=== PATIENT | female | born 2000 | race Caucasian/White ===

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

== ENCOUNTER 2021-02-14 15:07 | Outpatient (CLI) | payer MEDICAID, SELFPAY ==
[2021-02-14 16:11] LABS: Kit/Specimen SENT
[2021-02-14 16:16] LABS: Abs Immature Grans 0.08 10^3/uL (0.0-0.06); Absolute Basophil Count 0.04 10^3/uL (0.0-0.2); Absolute Eosinophil Count 0.15 10^3/uL (0.0-0.7); Basophils % 0.3; Eosinophils % 1.1; HCT 39.2 % (36.0-46.0); HGB 13.4 g/dL (11.2-15.7); Immature Grans % 0.6; Lymphocytes % 20.6; MCH 30.4 pg (27.0-33.0); MCHC 34.2 % (32.0-36.0); MCV 88.9 fL (80-95); MPV 10.3 fL (8.0-11.0); Monocytes % 5.5; Neutrophils % 71.9; Nucleated RBC 0 %; Platelet Count 256 10^3/uL (130-400); RBC 4.41 10^6/uL (3.93-5.22); RDW 11.7 % (11.7-14.6); RDW-SD 37.4 fL; WBC 14.09 10^3/uL (4.4-10.8)
[2021-02-14 16:27] LABS: Absolute Monocyte Count 0.77 10^3/uL (0.1-0.8); Absolute Neutrophil Count 10.13 10^3/uL (1.2-6.7)
[2021-02-15 10:25] LABS: Hepatitis B Surface Ag Negative (Negative)
[2021-02-15 11:01] LABS: HIV-1/2 Ag & Ab Screen Negative (Negative)
[2021-02-15 11:14] LABS: Hepatitis C Ab w Rflx HCV PCR Negative (Negative)
[2021-02-15 11:38] LABS: Varicella IgG Antibody Positive (See Note)
[2021-02-15 11:44] LABS: Rubella IgG Ab (UVM) Positive (See Note)
[2021-02-16 10:20] LABS: Syphilis Total Ab w/Reflex Nonreactive (Nonreactive)
[2021-02-22 23:04] LABS: Result Summary NEGATIVE; Specimen WB Whole Blood
== END 2021-02-14 15:08 | disposition home or self-care (01) ==
LOC: LBO 15:09
PROVIDERS: PCP Registered Nurse; Visit Provider Advanced Practice Midwife
DX: Z34.91 Encounter for supervision of normal pregnancy, unspecified, first trimester (principal); Z13.29 Encounter for screening for other suspected endocrine disorder; Z11.4 Encounter for screening for human immunodeficiency virus [HIV]; Z11.59 Encounter for screening for other viral diseases; Z01.84 Encounter for antibody response examination
CPT/HCPCS: 36415; 86787; 86803; 86850; 86900; 86901; 87340; 87389; 81220; 84443; 85025; 86762; 86780

== ENCOUNTER 2021-02-14 15:40 | Outpatient (REF) | payer MEDICAID, SELFPAY ==
[2021-02-14 16:58] LABS: *AMPHETAMINES SCREEN URINE Negative (Negative); *BARBITURATES SCREEN URINE Negative (Negative); *BENZODIAZEPINES SCREEN URINE Negative (Negative); Cannabinoids THC Positive (Negative); Cocaine Screen,Urine Negative (Negative); METHADONE URINE SCREEN Negative (Negative); OPIATES URINE SCREEN Negative (Negative)
[2021-02-14 16:59] LABS: Tricyclic Antidepressants Negative (Negative)
[2021-02-15 15:02] LABS: Chlamydia Result Negative (Negative); GC Result Negative (Negative)
[2021-02-17 10:59] LABS: Buprenorphine Negative ng/mL (Cutoff: 5.0); Norbuprenorphine Negative ng/mL (Cutoff: 2.5)
== END 2021-02-14 15:41 | disposition home or self-care (01) ==
LOC: LBN 15:40
PROVIDERS: PCP Registered Nurse; Visit Provider Advanced Practice Midwife
DX: Z34.91 Encounter for supervision of normal pregnancy, unspecified, first trimester (principal); Z11.3 Encounter for screening for infections with a predominantly sexual mode of transmission; Z3A.12 12 weeks gestation of pregnancy
CPT/HCPCS: 80307; 87491; 87591; 87086

== ENCOUNTER 2021-04-04 02:05 | Outpatient (CLI) | payer MEDICAID, SELFPAY ==
--- NOTE | 2021-04-04 08:15 | DI.US_ITS ---
Exam(s) US OB 2-3 TRIMESTER EXAM: US OB 2-3 TRIMESTER CLINICAL HISTORY: anatomy US, Z34.92 TECHNIQUE: Ultrasound performed using standard protocol. COMPARISON: No exams were available for comparison FINDINGS: Ob ultrasound was performed utilizing 2nd trimester protocol. biometry is consistent with a ge stational age of 20 weeks 0 days and an EDC of August 22. Placenta is anterior and there is no evidence of placenta previa. There is visually a normal quantit y of amniotic fluid. heart rate is 155 BPM. anomaly screen is within normal limits as per the attached checkl ist. IMPRESSION: DATA REPOSITORY:
== END 2021-04-04 02:25 ==
PROVIDERS: PCP Registered Nurse; Visit Provider Advanced Practice Midwife
DX: Z34.92 Encounter for supervision of normal pregnancy, unspecified, second trimester (principal); Z3A.20 20 weeks gestation of pregnancy
CPT/HCPCS: 76805

== ENCOUNTER 2021-05-07 16:45 | Emergency (ER) | payer MEDICAID, SELFPAY ==
[2021-05-07 16:49] VITALS: BP 116/73; PULSE 98; RESP 17; TEMP 36.4; O2SAT 97
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
[2021-05-07] MEDS: Acetaminophen 500 MG TAB PO (17:31)
== END 2021-05-07 18:20 | disposition home or self-care (01) ==
PROVIDERS: Emergency Provider Registered Nurse Emergency; PCP Registered Nurse
DX: O9A.212 Injury, poisoning and certain other consequences of external causes complicating pregnancy, second trimester (principal); S00.03XA Contusion of scalp, initial encounter; Z3A.24 24 weeks gestation of pregnancy; V49.9XXA Car occupant (driver) (passenger) injured in unspecified traffic accident, initial encounter
CPT/HCPCS: 99284; 99283

== ENCOUNTER 2021-05-07 17:50 | Observation (INO) | payer MEDICAID, SELFPAY ==
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
[2021-05-07 20:30] VITALS: BP 99/66; PULSE 75; RESP 16; TEMP 37
[2021-05-07 20:33] VITALS: BP 98/66; PULSE 75
== END 2021-05-07 22:15 | disposition home or self-care (01) ==
PROVIDERS: Admitting Provider Advanced Practice Midwife; PCP Registered Nurse; Visit Provider Advanced Practice Midwife
DX: Z04.1 Encounter for examination and observation following transport accident (principal); V89.0XXA Person injured in unspecified motor-vehicle accident, nontraffic, initial encounter; O99.352 Diseases of the nervous system complicating pregnancy, second trimester; O99.512 Diseases of the respiratory system complicating pregnancy, second trimester; Z3A.24 24 weeks gestation of pregnancy; J45.909 Unspecified asthma, uncomplicated; G43.909 Migraine, unspecified, not intractable, without status migrainosus; O99.322 Drug use complicating pregnancy, second trimester; F12.90 Cannabis use, unspecified, uncomplicated
CPT/HCPCS: 59025; G0378

== ENCOUNTER 2021-05-20 18:09 | Observation (INO) | payer MEDICAID, SELFPAY ==
[2021-05-20 18:46] VITALS: BP 119/67; PULSE 67
[2021-05-20] MEDS: Lactated Ringers 1,000 ML 1000 ML IV (18:55)
[2021-05-20 19:03] VITALS: BP 119/67; PULSE 76; TEMP 36.8
[2021-05-20 19:29] LABS: HCT 35.6 % (36.0-46.0); HGB 12.3 g/dL (11.2-15.7); MCHC 34.6 % (32.0-36.0); MCV 89.7 fL (80-95); MPV 10.3 fL (8.0-11.0); Platelet Count 238 10^3/uL (130-400); RBC 3.97 10^6/uL (3.93-5.22); RDW 11.8 % (11.7-14.6); RDW-SD 38.2 fL; WBC 16.58 10^3/uL (4.4-10.8)
[2021-05-20 19:31] LABS: Bilirubin Negative (Negative); Blood Negative (Negative); Clarity Clear (Clear); Glucose Negative (Negative); Ketones 40 mg/dL (Negative); Leukocyte Esterase Small (Negative); Nitrite Negative (Negative); Urobilinogen 0.2 EU/dL (Up TO 0.2); pH 6.5 (5-8)
[2021-05-20 19:33] LABS: Source Nasal/Nares
[2021-05-20] MEDS: Pantoprazole 40 MG VIAL IVP (19:34)
[2021-05-20] MEDS: Normal Saline Flush 10 ML SYR IVP ×2 (19:34→20:05)
[2021-05-20 19:38] LABS: ALT 30 U/L (14-59); AST 13 U/L (15-37); Albumin 2.7 g/dL (3.4-5.0); Alkaline Phosphatase 104 U/L (46-116); Anion Gap 10.6 mmol/L (3-11); BUN 4 mg/dL (7-18); Bilirubin, Total 0.3 mg/dL (0.2-1.0); CO2 23.4 mmol/L (21.0-32.0); CREATININE 0.6 mg/dL (0.55-1.02); Calcium 8.4 mg/dL (8.5-10.1); Chloride 105 mmol/L (98-107); Glucose 74 mg/dL (74-106); Potassium 3.5 mmol/L (3.5-5.1); Sodium 139 mmol/L (136-145); Total Protein 6.5 g/dL (6.4-8.2)
[2021-05-20 19:40] LABS: Bacteria Moderate HPF (Negative); C & S Indicated? Yes; Casts Negative LPF (Negative); Crystals Negative HPF (Negative); Epithelial Cells Few HPF (Negative); Mucus Negative (Negative); RBC 0-2 HPF (0-2)
--- NOTE | 2021-05-20 19:43 | HPE_ITS ---
Date of service: 05/20/21 Time of Service: 19:43 Assessment and Plan Assessment and plan (1) Nausea and vomiting of , antepartum: Status: Acute Assessment and plan: will give IV hydration and antiemectic as well as protonix and reassess for possible discharge to home. Labs essentially normal, potassium 3.5 urine specific gravity 1.010 with 40 ketones, consistent with her ability to hydrate but not eat well. If after 1000cc bolus and medications patient is not feeling much improved with desire to go home she will stay overnight for repeat assessment in the morning for discharge to home. [facility] OB-HPI Labor/Delivery History of Present Illness Reason for Visit: Fluids Chief Complaint: Other (persistent N&V despite PO zofran and diclegis). ELIDA Calculator Estimated Delivery Date Method Current WG Current Estimate 08/24/21 Ultrasound #1 26w 2d Other Estimates 08/27/21 LMP (Certain) 25w 6d Comments: Patient reports she has not been able to eat since yesterday and has taken in 36 ounces of fluids but feels she is vomiting it all up so she was encouraged to come to [facility] for IV hydration and assessment of electrolytes. Denies LOF, vagainl bleeding or contractions. Denies fever. Has used zofran and diclegis at home with inadequate relief. TRAM History of Present Expected Delivery Route/Plan - FOB/edmund - Wallace Francoell ( his first child) BB [place] yes to circ Specific Issues/Plan 1. THC + UDS on initial OB, pt counseled re risks and POSC, repeat @ 28 wks 2. Pulmonology reports from [facility] scanned, no evidence of obstructive airway disease asthma is probable diagnosis. 3. [place] screen low prob x3, male fetus, declines AFP, CF negative 4. Migraine - tylenol PRN 5. 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 decreased pulmonary function Migraine Surgical History History of tonsillectomy age 11 Family History Father Well adult Mother Well adult Exotropia of both eyes Maternal Grandfather FH: hemophilia Brother Autism Paternal Grandfather Diabetes Maternal Grandmother Heart disease Prostate cancer Thyroid disease Social History Smoking/Tobacco Use Status: Never Smoking risk assessment performed?: Yes Alcohol Intake: never Drug use: Daily Substance use type: marijuana Do you feel safe at home: Yes Do you feel safe in your relationship?: Yes Female Reproductive History Menstrual Age of Menarche: 12 control method: condoms History History 1 Para 0 Hx # Term Pregnancies 0 Multiple births 0 Hx # Pregnancies 0 Ectopic pregnancies 0 AB induced 0 Hx Number of Living Children 0 AB spontaneous 0 Meds Allergies and Home Medications Allergies Allergy/AdvReac Type Severity Reaction Status Date / Time birch pollen Allergy nasal Uncoded 05/20/21 19:49 stuffiness fiberglass casts Allergy Blisters Uncoded 05/20/21 19:49 Home Medications Medication Instructions Recorded Confirmed Type albuterol sulfate 2 puff INHALATION Q4H PRN 06/30/18 05/07/21 History loratadine 10 mg tablet 10 mg PO DAILY PRN 02/14/21 05/07/21 History prenat.vits,gus,[id number] 1 tab PO DAILY 02/14/21 05/07/21 History ondansetron HCl 4 mg tablet 4 mg PO Q8H PRN #30 tab 03/14/21 05/07/21 Rx doxylamine 10 mg-pyridoxine (vit 1 tab PO BID #30 tab 04/04/21 05/07/21 Rx B6) 10 mg tablet,delayed release docusate sodium 100 mg capsule 100 mg PO BID #60 cap 05/02/21 05/07/21 Rx Exam Physical Exam Vital signs: Pulse BP 67 119/67 05/20/21 18:46 05/20/21 18:46 Vital Signs Reviewed: Yes Constitutional Constitutional: no acute distress Comments: after IV reglan and protonix patient is attempting to eat popcorn as that was what sounded good to her. Detailed Labor and Delivery Exam Brower Score: Cervical Points Exam 0 1 2 3 Dilation Closed 1-2cm 3-4 cm 5-6cm Effacement 0-30% 40-50% 60-70% 80% Consistency Firm Medium Soft Station -3 -2 -1,0 +1,+2 Position Posterior Mid Anterior Fetus A Assessment Note: patient is 26w2d with FHR within normal ranges of 120- 150. No noted contractions and patient denies discomfort. Results Abnormal Lab Findings: Abnormal Labs 05/20/21 05/20/21 05/20/21 18:46 19:10 19:10 WBC 16.58 H Hct 35.6 L BUN 4 L Calcium 8.4 L AST 13 L Albumin 2.7 L Urine Ketones 40 H Ur Leukocyte Esterase Small H Urine WBC 10-20 H Risk Assessment Risk for Shoulder Dystocia Historical/Initial OB: NEGATIVE FOR: Pelvic Abnormality, Pre- BMI>30, Previous Shoulder Dystocia or Previous Macrosomia Risk for Pre-Eclampsia Yes, if one or more: NEGATIVE FOR: Hx Pre-E/Gest HTN, Chronic HTN, Multiple Gestation, Pre-gestational DM, Renal Disease, Systemic Lupus or APA Syndrome Yes, if 2 or more: POSITIVE FOR: Nulliparity Risk for Post- Hemorrhage Initial: NEGATIVE FOR: Multiple Gestation, Previous PPH, Known Clotting Deficiency, Grand Multiparity or Anticoagulation Risks Reviewed Risks Reviewed Upon Admission: No (26w2d with nausea and vomiting, not admitted for labor. )
--- NOTE | 2021-05-20 20:02 | W.PM.PROGNOT ---
Date of Service Date of service: 05/20/21 Time of Service: 20:02 Assessment and Plan Assessment and plan (1) Nausea and vomiting of , antepartum: Status: Acute Assessment and plan: May be discharged to home if tolerating regular diet and no further emesis. Should keep her next scheduled visit in office. RX for protonix 40 mg daily sent to pharmacy. Subjective Subjective Interval history since last seen: After 30 minutes of IV hydration and medication for nausea as well as indigestion patient is requesting regular food and has been able to eat cheese and popcorn. She is also up to bathroom due to need to urinate. Urine is not dark in color. If she tolerated sandwich or similar well will likely discharge to home tonight. Exam HENMT Head: normal to inspection Ears: hearing grossly normal bilaterally Eyes General: appearance normal, both eyes and all related structures Eyelids: eyelids normal Conjunctivae: conjunctivae normal Resp Effort & Inspection: normal respiratory effort and able to speak in complete sentences Cardio Rate: regular rate GI Inspection: normal to inspection and other (size of uterus consistent with gestational age) Palpation: soft Neuro General: patient alert, patient oriented x3, gait normal, tone normal and moves all extremities Motor: muscle tone normal throughout Extrem Other: denies shaking feeling she had prior to arrival. Psych Appearance: grossly normal and well kempt Speech and Movement: speech and movement normal Mood: congruent mood Affect: normal affect Attitude: cooperative Thought Process: normal Thought Content: normal Insight: insight good Judgment: judgment good Objective Last Vital Signs Pulse 67 05/20/21 18:46 BP 119/67 05/20/21 18:46 Laboratory Results - last 24 hr 05/20/21 05/20/21 05/20/21 18:46 19:10 19:10 WBC 16.58 H RBC 3.97 Hgb 12.3 Hct 35.6 L MCV 89.7 MCH 31.0 MCHC 34.6 RDW 11.8 Plt Count 238 MPV 10.3 Sodium 139 Potassium 3.5 Chloride 105 Carbon Dioxide 23.4 Anion Gap 10.6 BUN 4 L Creatinine 0.6 Estimated GFR/1.73 m2 >= 60.00 Glucose 74 Calcium 8.4 L Total Bilirubin 0.3 AST 13 L ALT 30 Alkaline Phosphatase 104 Total Protein 6.5 Albumin 2.7 L Urine Color Yellow Urine Clarity Clear Urine pH 6.5 Ur Specific [place] 1.010 Urine Protein Negative Urine Ketones 40 H Urine Blood Negative Urine Nitrite Negative Urine Bilirubin Negative Urine Urobilinogen 0.2 Ur Leukocyte Esterase Small H Urine RBC 0-2 Urine WBC 10-20 H Ur Epithelial Cells Few Urine Crystals Negative Urine Bacteria Moderate Urine Casts Negative Urine Mucus Negative Ur Culture Indicated? Yes Urine Glucose Negative COVID-19 Source 05/20/21 19:10 WBC RBC Hgb Hct MCV MCH MCHC RDW Plt Count MPV Sodium Potassium Chloride Carbon Dioxide Anion Gap BUN Creatinine Estimated GFR/1.73 m2 Glucose Calcium Total Bilirubin AST ALT Alkaline Phosphatase Total Protein Albumin Urine Color Urine Clarity Urine pH Ur Specific [place] Urine Protein Urine Ketones Urine Blood Urine Nitrite Urine Bilirubin Urine Urobilinogen Ur Leukocyte Esterase Urine RBC Urine WBC Ur Epithelial Cells Urine Crystals Urine Bacteria Urine Casts Urine Mucus Ur Culture Indicated? Urine Glucose COVID-19 Source Nasal/Nares
[2021-05-20] MEDS: Metoclopramide 10 MG/2 ML VIAL IVP (20:04)
[2021-05-20 20:23] LABS: COVID-19 PCR Negative (Negative)
--- NOTE | 2021-05-20 21:24 | DSE_ITS ---
Date of service: 05/20/21 Time of Service: 21:24 DS: Diagnosis Discharge Diagnosis (1) Nausea and vomiting of , antepartum: Status: Acute Asessment and Plan: Now able to eat regular diet and no vomiting since arrival. Has had 1200 cc of IV fluid, normal specific gravity in urine and BG improved from 79 to 98. Discharge Plan Disposition Patient Disposition: HOME Condition: Good Discharge Details Reason For Visit: Fluids Admit Date/Time: 05/20/21 18:09 Admit Provider: Carla Dubon Attending Provider: Carla Dubon Primary Care Provider: Venecia Bobo [facility] Course Hospital Course: IV hydration, normal electrolytes noted and urine specific gravity 1.010, 40 of ketones but is now eating well and no vomiting since arrival. Home Meds and New Rx's Prescriptions: No Action loratadine [Claritin] 10 mg tablet 10 mg PO DAILY PRNRF: 0 prenat.vits,gus,[id number] Tablet 1 tab PO DAILY RF: 0 ondansetron HCl 4 mg tablet 4 mg PO Q8H PRN (Reason: nausea and vomiting) Qty: 30 RF: 4 doxylamine-pyridoxine (vit B6) [Diclegis] 10-10 mg tablet,delayed release (DR/EC) 1 tab PO BID Qty: 30 RF: 3 docusate sodium [Colace] 100 mg capsule 100 mg PO BID Qty: 60 RF: 2 pantoprazole [Protonix] 40 mg tablet,delayed release (DR/EC) 40 mg PO DAILY Qty: 60 RF: 0 albuterol sulfate 90 mcg/actuation Aerosol Powdr Breath Activated 2 puff INHALATION Q4H PRNRF: 0 Discharge Instructions Activity:: Activity as Tolerated Equipment/Supplies:: No Equipment Needed Diet:: As Tolerated Discharge Orders Discharge Orders: Discharge Order (Routine); Ordered 05/20/21 Ordered By: Carla Dubon OB:DS Summary Contraception Discussed Contraception Discussed: No, Status at Discharge Functional status at discharge: independent ambulation Overall status at discharge: patient is back to baseline Mental Status: mental status grossly normal Speech and Movement: speech and movement normal Mood: congruent mood Affect: normal affect Exam Physical Exam Vital signs: Pulse BP 67 119/67 05/20/21 18:46 05/20/21 18:46 Vital Signs Reviewed: Yes Constitutional Constitutional: no acute distress HEENT Exam HEENT Exam: Normal Neck Exam Neck Exam: Not Done Respiratory Exam Respiratory Exam: Normal Cardiovascular Exam Cardiovascular Exam: Normal Rectal Exam Rectal Exam: Not Done Extremities Exam Extremity Exam: negative Normal Back/Spine/Pelvis Exam Back Exam: Not Done Skin Exam Skin Exam: Not Done Neurological Exam Neurological Exam: Normal Psychiatric Exam Psychiatric Exam: Normal [facility] Medical History 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 decreased pulmonary function Migraine Surgical History History of tonsillectomy age 11 Family History Father Well adult Mother Well adult Exotropia of both eyes Maternal Grandfather FH: hemophilia Brother Autism Paternal Grandfather Diabetes Maternal Grandmother Heart disease Prostate cancer Thyroid disease Social History Smoking/Tobacco Use Status: Never Smoking risk assessment performed?: Yes Alcohol Intake: never Drug use: Daily Substance use type: marijuana Do you feel safe at home: Yes Do you feel safe in your relationship?: Yes Female Reproductive History Menstrual Age of Menarche: 12 control method: condoms History History 1 Para 0 Hx # Term Pregnancies 0 Multiple births 0 Hx # Pregnancies 0 Ectopic pregnancies 0 AB induced 0 Hx Number of Living Children 0 AB spontaneous 0 DS: Data Vitals/I&O Vitals and I&O: Vital Signs Pulse 67 05/20/21 18:46 Blood Pressure 119/67 05/20/21 18:46 Data Completed and Pending Labs on day of discharge: Labs from last 24 hours 05/20/21 05/20/21 05/20/21 19:10 19:10 19:10 WBC 16.58 H RBC 3.97 Hgb 12.3 Hct 35.6 L MCV 89.7 MCH 31.0 MCHC 34.6 RDW 11.8 Plt Count 238 MPV 10.3 Sodium 139 Potassium 3.5 Chloride 105 Carbon Dioxide 23.4 Anion Gap 10.6 BUN 4 L Creatinine 0.6 Estimated GFR/1.73 m2 >= 60.00 Glucose 74 Calcium 8.4 L Total Bilirubin 0.3 AST 13 L ALT 30 Alkaline Phosphatase 104 Total Protein 6.5 Albumin 2.7 L Urine Color Urine Clarity Urine pH Ur Specific [place] Urine Protein Urine Ketones Urine Blood Urine Nitrite Urine Bilirubin Urine Urobilinogen Ur Leukocyte Esterase Urine RBC Urine WBC Ur Epithelial Cells Urine Crystals Urine Bacteria Urine Casts Urine Mucus Ur Culture Indicated? Urine Glucose COVID-19 Source Nasal/Nares SARS-CoV-2 (PCR) Negative 05/20/21 18:46 WBC RBC Hgb Hct MCV MCH MCHC RDW Plt Count MPV Sodium Potassium Chloride Carbon Dioxide Anion Gap BUN Creatinine Estimated GFR/1.73 m2 Glucose Calcium Total Bilirubin AST ALT Alkaline Phosphatase Total Protein Albumin Urine Color Yellow Urine Clarity Clear Urine pH 6.5 Ur Specific [place] 1.010 Urine Protein Negative Urine Ketones 40 H Urine Blood Negative Urine Nitrite Negative Urine Bilirubin Negative Urine Urobilinogen 0.2 Ur Leukocyte Esterase Small H Urine RBC 0-2 Urine WBC 10-20 H Ur Epithelial Cells Few Urine Crystals Negative Urine Bacteria Moderate Urine Casts Negative Urine Mucus Negative Ur Culture Indicated? Yes Urine Glucose Negative COVID-19 Source SARS-CoV-2 (PCR) 05/20/21 18:46 Urine - Reflex from Ua Urine Culture - Pending Preliminary micro results at discharge 05/20/21 18:46 Urine Culture - Pending Urine - Reflex from Ua
== END 2021-05-20 21:30 | disposition home or self-care (01) ==
PROVIDERS: Admitting Provider Advanced Practice Midwife; PCP Registered Nurse; Visit Provider Advanced Practice Midwife
DX: O21.2 Late vomiting of pregnancy (principal); Z3A.26 26 weeks gestation of pregnancy; O99.352 Diseases of the nervous system complicating pregnancy, second trimester; G43.909 Migraine, unspecified, not intractable, without status migrainosus; Z20.822 Contact with and (suspected) exposure to COVID-19
CPT/HCPCS: 36415; 80053; 85027; 87635; 96360; 96361; 59025; 81003; 81015; 87086; J2765

== ENCOUNTER 2021-05-30 04:55 | Outpatient (CLI) | payer MEDICAID, SELFPAY ==
[2021-05-30 13:51] LABS: HCT 38.4 % (36.0-46.0); HGB 12.7 g/dL (11.2-15.7); MCHC 33.1 % (32.0-36.0); MCV 90.8 fL (80-95); MPV 10.1 fL (8.0-11.0); Platelet Count 238 10^3/uL (130-400); RBC 4.23 10^6/uL (3.93-5.22); RDW 11.9 % (11.7-14.6); RDW-SD 39.4 fL; WBC 14.49 10^3/uL (4.4-10.8)
[2021-05-30 14:09] LABS: Glucose,1 Hr (Glucola) 100 mg/dL (80-140)
[2021-05-30 16:51] LABS: *AMPHETAMINES SCREEN URINE Negative (Negative); *BARBITURATES SCREEN URINE Negative (Negative); *BENZODIAZEPINES SCREEN URINE Negative (Negative); Cannabinoids THC Positive (Negative); Cocaine Screen,Urine Negative (Negative); METHADONE URINE SCREEN Negative (Negative); OPIATES URINE SCREEN Negative (Negative)
[2021-05-30 16:53] LABS: Tricyclic Antidepressants Negative (Negative)
[2021-06-06 09:50] LABS: Buprenorphine Negative ng/mL (Cutoff: 5.0); Norbuprenorphine Negative ng/mL (Cutoff: 2.5)
== END 2021-05-30 04:56 | disposition home or self-care (01) ==
LOC: LBO 04:56
PROVIDERS: Advanced Practice Midwife; PCP Registered Nurse; Visit Provider Advanced Practice Midwife
DX: O99.323 Drug use complicating pregnancy, third trimester (principal); R82.5 Elevated urine levels of drugs, medicaments and biological substances; Z3A.28 28 weeks gestation of pregnancy
CPT/HCPCS: 36415; 80307; 82950; 85027

== ENCOUNTER 2021-07-25 16:58 | Outpatient (REF) | payer MEDICAID, SELFPAY ==
[2021-07-25 17:29] LABS: *AMPHETAMINES SCREEN URINE Negative (Negative); *BARBITURATES SCREEN URINE Negative (Negative); *BENZODIAZEPINES SCREEN URINE Negative (Negative); Cannabinoids THC Positive (Negative); Cocaine Screen,Urine Negative (Negative); METHADONE URINE SCREEN Negative (Negative); OPIATES URINE SCREEN Negative (Negative)
[2021-07-25 17:30] LABS: Tricyclic Antidepressants Negative (Negative)
[2021-08-01 14:15] LABS: Buprenorphine Negative ng/mL (Cutoff: 5.0); Norbuprenorphine Negative ng/mL (Cutoff: 2.5)
== END 2021-07-25 16:59 | disposition home or self-care (01) ==
LOC: LBN 16:58
PROVIDERS: PCP Registered Nurse; Visit Provider Advanced Practice Midwife
DX: R82.5 Elevated urine levels of drugs, medicaments and biological substances (principal); O26.893 Other specified pregnancy related conditions, third trimester
CPT/HCPCS: 80307; 87081

== ENCOUNTER 2021-08-07 10:04 | Inpatient (IN) | payer MEDICAID, SELFPAY ==
[2021-08-07] VITALS (45 sets, daily range): BP systolic 111–164; BP diastolic 61–93; PULSE 50–90; RESP 16; TEMP 36.4–37.2; O2SAT 97–100; BMI 30.9
--- NOTE | 2021-08-07 11:17 | HPE_ITS ---
Date of service: 08/07/21 Time of Service: 11:18 Assessment and Plan Assessment and plan (1) PROM with onset of labor within 24 hours of rupture: Status: Acute Assessment and plan: A: 21 yo G1 @ 37 wks SROM clear confirmed via speculum exam Early labor, PROM x8 hrs, Category 1 tracing with baseline 100-110 MJ user throughout , POSC completed in third trimester GBS+, low risk for SD and PPH P: Admit to BC, CBC, T&S, COVID swab Begin PCN for GBS prophylaxis Provide IV hydration, comfort measures as pt requests Expectant management, monitor for onset of active labor Anticipate Qualifiers: PROM gestational age: full term Qualified Code(s): O42.02 - Full-term premature rupture of membranes, onset of labor within 24 hours of rupture (2) 37 weeks gestation of : Status: Acute (3) Group B Streptococcus carrier, +RV culture, currently : Status: Acute Assessment and plan: A: Begin PCN prophylaxis q 4 hrs IV OB-HPI Labor/Delivery History of Present Illness Reason for Visit: R/O SROM R\O LABOR AT TERM Chief Complaint: Uterine Contractions; Suspected Rupture of Membranes , Associated Signs and Symptoms of Suspected ROM: Starting leaking fluids and feeling wet at 0300 this morning, contractions have steadily increased since then. No bleeding, no vomiting, back hurts a lot. ELIDA Calculator Estimated Delivery Date Method Current WG Current Estimate 08/24/21 Ultrasound #1 37w 4d Other Estimates 08/27/21 LMP (Certain) 37w 1d History of Present Expected Delivery Route/Plan - CNM FOB/edmund Villeda (his first child) JANINE Ojeda yes to circ Prefer not to have epidural if possible. She would like to use the tub. GBS pos. - discuss with patient, reviewed 08/01/21, agrees to PCN treatment Specific Issues/Plan 1. THC + UDS on initial OB, pt counseled re risks and POSC, repeat @ 28 wks 1a. Pos. marijuana at 28 weeks, complete POSC- completed with Caron Millan 1b. THC pos. at 35 weeks 2. Pulmonology reports from [facility], no evidence of obstructive airway disease asthma is probable diagnosis. 3. [place] screen low prob x3, male fetus, declines AFP, CF negative 4. Migraine - tylenol PRN 5. Severe nausea - zofran and diclegis daily 6. Heartburn - taking protonix and symptoms relieved. 7. Myranda does not intend to receive covid vaccine, she is considering receiving the vaccine while . Wallace has had the first shot, but didn't get the second. 8. Anxiety - uses marijuana to control symptoms. Assessment: History Reviewed & Current Review of Systems All systems reviewed & are unremarkable except as noted in HPI and below Constitutional Constitutional: Reports system reviewed and no additional complaints, except as documented and Reports poor appetite ENT Ears, Nose, Mouth, and Throat: Reports system reviewed and no additional complaints, except as documented Cardiovascular Cardiovascular: Reports system reviewed and no additional complaints, except as documented Respiratory Respiratory: Reports system reviewed and no additional complaints, except as documented Gastrointestinal Gastrointestinal: Reports system reviewed and no additional complaints, except as documented and Reports nausea Genitourinary Genitourinary: Reports system reviewed and no additional complaints, except as documented and Reports as per HPI Musculoskeletal Musculoskeletal: Reports back pain Integumentary/Breasts Skin/Breast: Reports system reviewed and no additional complaints, except as documented Neurologic Neurologic: Reports system reviewed and no additional complaints, except as documented Psychiatric Psychiatric: Reports system reviewed and no additional complaints, except as documented [facility] Medical History (Updated 08/07/21 @ 11:25 by Norma Patel) Anxiety 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 decreased pulmonary function Migraine Positive test Positive urine drug screen at initial OB visit Sprain of hand, left Surgical History History of tonsillectomy age 11 Family History Father Well adult Mother Well adult Exotropia of both eyes Maternal Grandfather FH: hemophilia Brother Autism Paternal Grandfather Diabetes Maternal Grandmother Heart disease Prostate cancer Thyroid disease Social History Smoking/Tobacco Use Status: Never Smoking risk assessment performed?: Yes Alcohol Intake: never Drug use: Daily Substance use type: marijuana Do you feel safe at home: Yes Do you feel safe in your relationship?: Yes Female Reproductive History Menstrual Age of Menarche: 12 control method: condoms History History 1 Para 0 Hx # Term Pregnancies 0 Multiple births 0 Hx # Pregnancies 0 Ectopic pregnancies 0 AB induced 0 Hx Number of Living Children 0 AB spontaneous 0 Meds Allergies and Home Medications Allergies Allergy/AdvReac Type Severity Reaction Status Date / Time birch pollen Allergy nasal Uncoded 08/01/21 15:12 stuffiness fiberglass casts Allergy Blisters Uncoded 08/01/21 15:12 Home Medications Medication Instructions Recorded Confirmed Type albuterol sulfate 2 puff INHALATION Q4H PRN 06/30/18 08/07/21 History loratadine 10 mg tablet 10 mg PO DAILY PRN 02/14/21 08/07/21 History prenat.vits,gus,omv-sglb-zmrcl 1 tab PO DAILY 02/14/21 08/07/21 History ondansetron HCl 4 mg tablet 4 mg PO Q8H PRN #30 tab 03/14/21 08/07/21 Rx doxylamine 10 mg-pyridoxine (vit 1 tab PO BID #30 tab 04/04/21 08/07/21 Rx B6) 10 mg tablet,delayed release ferrous sulfate 325 mg (65 mg 325 mg PO DAILY #60 tab 07/25/21 08/07/21 Rx iron) tablet,delayed release pantoprazole 40 mg tablet,delayed 40 mg PO DAILY #60 tab 07/25/21 08/07/21 Rx release Exam Physical Exam Vital signs: Temp Pulse Resp BP 97.7 F 64 16 126/79 08/07/21 10:12 08/07/21 10:12 08/07/21 10:12 08/07/21 10:12 Vital Signs Reviewed: Yes Constitutional Constitutional: mild distress and average body habitus Detailed Labor and Delivery Exam Dilation: 1 Effacement (%): 90 station: -2 Cervix position: anterior Consistency: medium BANGURA Score(Cervical Ripeness Score): 7 Amniotic Membrane Status: Ruptured Rupture Method: Spontaneous Amniotic Fluid: Clear Pooling: Positive Nitrazine: Equivocal Ferning: Present Monitor Mode: External Contraction Frequency(min): q4 Contraction Intensity: Mild/Moderate Fetus A Heart Rate Baseline: 110 Monitor Accelerations: 15 X 15 Monitor Decelerations: None Variability: Moderate (6-25 BPM) Presentation: Cephalic Categories: Category I Est. Weight: 6 lb 13.349 oz Est. Weight: 3100 gm Date of Membrane Rupture: 08/07/21 Time of Membrane Rupture: 03:00 HEENT Exam HEENT Exam: Normal Neck Exam Neck Exam: Normal Chest/Brest/Axilla Exam Chest Exam: Normal Breast Exam Breast Exam: Not Done Respiratory Exam Respiratory Exam: Normal Cardiovascular Exam Cardiovascular Exam: Normal Abdominal Exam Abdominal Exam: Normal (Gravid) Rectal Exam Rectal Exam: Not Done Exam Exam: Normal Extremities Exam Extremities Exam: Normal Back/Spine/Pelvis Exam Back Exam: Normal Pelvis Adequate: Yes Skin Exam Skin Exam: Normal Neurological Exam Neurological Exam: Normal Results Results Group Beta Strep: Positive Blood Type: O+ Rubella Status: Immune Varicella Immunity: Immune Risk Assessment Risk for Shoulder Dystocia Historical/Initial OB: NEGATIVE FOR: Pelvic Abnormality, Pre- BMI>30, Previous Shoulder Dystocia or Previous Macrosomia Increased Risk?: No Delivery Plan @ 36wks: spont labor, Risk for Pre-Eclampsia Daily Dose ASA Indicated: No Date Initiated/Initials: not indicated Yes, if one or more: NEGATIVE FOR: Hx Pre-E/Gest HTN, Chronic HTN, Multiple Gestation, Pre-gestational DM, Renal Disease, Systemic Lupus or APA Syndrome Yes, if 2 or more: POSITIVE FOR: Nulliparity; NEGATIVE FOR: Age>= 35 yrs, >10yr btwn pregnancies, BMI>30, ethinicty, Mother/Sister w/ Pre-E or Previous IUGR Risk for Post- Hemorrhage Initial: NEGATIVE FOR: Multiple Gestation, Previous PPH, Known Clotting Deficiency, Grand Multiparity or Anticoagulation At Risk?: No Counseled re: Active Management: Yes Risks Reviewed Risks Reviewed Upon Admission: Yes
[2021-08-07 11:52] LABS: HCT 39.8 % (36.0-46.0); HGB 13.2 g/dL (11.2-15.7); MCH 29.7 pg (27.0-33.0); MCHC 33.2 % (32.0-36.0); MCV 89.4 fL (80-95); MPV 11.2 fL (8.0-11.0); Platelet Count 265 10^3/uL (130-400); RBC 4.45 10^6/uL (3.93-5.22); RDW 12.8 % (11.7-14.6); RDW-SD 41.5 fL; WBC 17.95 10^3/uL (4.4-10.8)
[2021-08-07] MEDS: Lactated Ringers 500 ML IV ×2 (12:15→18:17)
[2021-08-07] MEDS: Penicillin G POT. 5,000,000 UNITS in Normal Saline 100 ML 200 UNITS IVPB (12:45)
[2021-08-07 13:00] LABS: Source Nasal/Nares
[2021-08-07 13:53] LABS: COVID-19 PCR Negative (Negative)
--- NOTE | 2021-08-07 15:39 | W.PM.OBNL1 ---
Date of service: 08/07/21 Time of Service: 15:39 Pelvic Exam Dilation: 2 Effacement (%): 90 station: -1 Cervix Position: anterior Consistency: medium Contractions Monitor Mode: External Contraction Frequency(min): q2-4, doubling Contraction Duration(sec): 40-60 Intensity: Mild/Moderate Fetus A Monitor: External (US) Heart Rate Baseline: 110 Variability: Moderate (6-25 BPM) Categories: Category I Accelerations: 15 X 15 Decelerations: None Amniotic Membrane Status: Ruptured Assessment Note: Forebag AROM'ed after informed choice discussed wth pt, sm-mod amt clear fluid returned, accel noted with scalp stim Assessment and Plan Assessment and plan (1) PROM with onset of labor within 24 hours of rupture: Status: Acute Assessment and plan: A: Latent phase labor, progressed to 2 cm and descent to -1 Category 1 tracing First dose PCN infused P: Continue expectant management Comfort measures as pt desires Anticipate Qualifiers: PROM gestational age: full term Qualified Code(s): O42.02 - Full-term premature rupture of membranes, onset of labor within 24 hours of rupture Objective Abnormal lab results 08/07/21 Range/Units 11:15 WBC 17.95 H (4.4-10.8) 10^3/uL MPV 11.2 H (8.0-11.0) fL Temp Pulse Resp BP Pulse Ox 98.1 F 71 16 129/83 100 08/07/21 15:13 08/07/21 13:07 08/07/21 10:12 08/07/21 12:47 08/07/21 13:07 Laboratory Results WBC 17.95 10^3/uL (4.4-10.8) H 08/07/21 11:15 RBC 4.45 10^6/uL (3.93-5.22) 08/07/21 11:15 Hgb 13.2 g/dL (11.2-15.7) 08/07/21 11:15 Hct 39.8 % (36.0-46.0) 08/07/21 11:15 MCV 89.4 fL (80-95) 08/07/21 11:15 MCH 29.7 pg (27.0-33.0) 08/07/21 11:15 MCHC 33.2 % (32.0-36.0) 08/07/21 11:15 RDW 12.8 % (11.7-14.6) 08/07/21 11:15 Plt Count 265 10^3/uL (130-400) 08/07/21 11:15 MPV 11.2 fL (8.0-11.0) H 08/07/21 11:15 COVID-19 Source Nasal/Nares 08/07/21 11:50 SARS-CoV-2 (PCR) Negative (Negative) 08/07/21 11:50 Patient ABO/Rh O Positive 08/07/21 11:33 Antibody Screen NEGATIVE 08/07/21 11:33 Subjective Interval history since last seen: Pt took her own Zofran and protonix for nausea and indigestion, then notified her RN. Ate a good lunch, enjoying the shower, back pain with contractions continues, states the pains are increasing.
[2021-08-07] MEDS: Penicillin G POT. 3,000,000 UNITS in Normal Saline 50 ML 100 UNITS IVPB (17:15)
--- NOTE | 2021-08-07 18:07 | PGE_ITS ---
Date of service: 08/07/21 Time of Service: 18:07 Informed Consent Informed Consent: Regional Anesthesia and Risk,Benefits,Alternatives Discussed Pelvic Exam Dilation: 3.5 Effacement (%): 100 station: 0 Cervix Position: mid Consistency: soft Vaginal Exam Presentation: Cephalic Contractions Contraction Frequency(min): q3-5 Contraction Duration(sec): 50-70 Intensity: Moderate/Strong Fetus A Monitor: Doppler Heart Rate Baseline: 110 FHR Rhythm: Regular Accelerations: Present Decelerations: None Amniotic Membrane Status: Ruptured Assessment and Plan Assessment and plan (1) PROM with onset of labor within 24 hours of rupture: Status: Acute Assessment and plan: A: active labor, request for epidural anesthesia 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 IVF bolus begun Qualifiers: PROM gestational age: full term Qualified Code(s): O42.02 - Full-term premature rupture of membranes, onset of labor within 24 hours of rupture Objective Vital Signs Reviewed: Yes Objective Narrative Objective Narrative: Pt has been using nitrous inhalant and has been immersed in labor tub Reported increased relaxation at first, then increased rectal pressure SVE in tub for 3-4/100% 0 station Out of tub to BR, spont void and BM, nauseated States I want it to stop, make it stop, I'm in too much pain, pain management options reviewed with pt Pt requests epidural anesthesia Normotensive, afebrile Subjective Interval history since last seen: Pt verbalizing loudly with contractions, requesting epidural anesthesia Interventions Pain Management Interventions: Comfort Measures , Tub (was in for 1 hour), Epidural Epidural Placed by:: Mann Gaytan and Nitrous Oxide , using prn .
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
--- NOTE | 2021-08-07 19:21 | W.PM.OBNL1 ---
Date of service: 08/07/21 Time of Service: 19:21 Pelvic Exam Dilation: 6 Effacement (%): 100 station: +1 Cervix Position: anterior Consistency: soft Vaginal Exam Presentation: Cephalic Contractions Monitor Mode: External Contraction Frequency(min): q3 Contraction Duration(sec): 60-80 Intensity: Moderate/Strong Fetus A Monitor: Internal (FSE) Heart Rate Baseline: 105 Presentation: Cephalic Variability: Moderate (6-25 BPM) Categories: Category I Accelerations: 15 X 15 Decelerations: Early Recurrence: Intermittent Amniotic Membrane Status: Ruptured Assessment and Plan Assessment and plan (1) PROM with onset of labor within 24 hours of rupture: Status: Acute Assessment and plan: A: Effective regional anesthesia Prolonged FHT decel upon anesthesia induction to 80's now resolved Return to category 1 tracing Active labor progressed to 6/100 and +1 station 2nd dose of PCN infused P: Dr. Pedersen to be inhouse shortly d/t period of category 2 tracing Cont EFM with FSE, Anticipate Qualifiers: PROM gestational age: full term Qualified Code(s): O42.02 - Full-term premature rupture of membranes, onset of labor within 24 hours of rupture Objective Vital Signs Reviewed: Yes Objective Narrative Objective Narrative: Epidural placed to good effect Upon anethesia induction FHT decreased to 80-95 FSE applied, maternal position to lateral, 02 per mask given, IVF 500 ml bolused BP has been normotensive, REFRIGERATING ENGINEER HEAD at bedside Dr. Pedersen notified of prolonged decel to 80's though resolved, moderate variability Subjective Interval history since last seen: More comfortable after epidural induction, very sleepy Procedure Procedures: Scalp Electrode Placement , indication for electrode: prolonged decel to 80 bpm
[2021-08-07] MEDS: Lactated Ringers 1,000 ML 150 ML IV (19:51)
[2021-08-07] MEDS: FentaNYL/ROPIvacaine 2 mcg/ml and 0.1% 200 ML CADD Cassette EP (19:51)
[2021-08-07] MEDS: Lidocaine 1% Multi-Dose 20 ML VIAL (19:52)
[2021-08-07] MEDS: fentaNYL 100 MCG/2 ML VIAL EP (19:53)
[2021-08-07] MEDS: Normal Saline Flush 10 ML SYR IVP (19:53)
--- NOTE | 2021-08-07 19:55 | W.ANESNEU ---
Epidural/Spinal Catheter Date Performed: 08/07/21 Procedure Start: 18:46 Procedure Stop: 18:57 Requesting Provider: Norma Patel Procedure Location: Obstetrics Reason Performed: Labor Epidural Standard Monitors Applied: ECG, Blood Pressure and SpO2 Patient Position: Sitting Sedation Given (Indicate Dose Given): No Sedation given Patient Mental Status: Awake Sterility: Hand Hygiene, Surgical Cap, Surgical Mask and Sterile Gloves Procedure Location: L3-L4 Interspace Epidural Needle: Tuohy 17 Guage Needle Length: 3.5 Inch Needle Approach: Midline Epidural Procedure: Skin Prepped, Sterile Drape Placed, 1% Lidocaine to skin and subcutaneous tissue with 25G needle, Tuohy Needle placed, ARELI to Saline Used, Epidural Catheter Placed, Negative Heme, Negative CSF Flow and Tuohy Needle Removed Catheter Placed?: Catheter Placed Test Dose (Indicate Dose Given): 3ml 1.5% Lidocaine with 1:200K Epinephrine Given and Negative Test Dose Loss of Resistance Depth (cm): 9 Catheter depth at skin (cm): 18 Dressing: Sorbaview Dressing Placed Epidural Provider Bolus (Indicate Dose Given): Total bolus dose given in 3-5 ml divided doses (Only one 3 cc dose) and Total Ropivacaine 0.1% with Fentanyl 2mcg/ml Given from pump (ml) Dose:: One 3cc bolus of pump mixture Additives (Indicate Dose Given ): Fentanyl PF Dose:: 100 mcg Infusion Medication: Medication Infusion Began Medication Infusion: Ropivacaine 0.1% with Fentanyl 2mcg/ml Maintenance Infusion Rate (ml/hour): 10 PCEA Bolus Dose (ml): 5 Block Level: T10 Paresthesia: None Ultrasound: Not Used Number of Attempts (See previous attempts in note section): 1 Procedure Tolerated: No Complications and Patient tolerated well Procedure Outcome: Successful Performed By: Marielle Mojica
--- NOTE | 2021-08-07 21:21 | W.ANESPOSTOP ---
Postoperative Evaluation Date, Time and Location Date Performed: 08/07/21 Time Performed: 21:21 Patient Location: Obstetrics Vital Signs Most Recent Imported Vital Signs: Most Recent Vital Signs Temp Pulse Resp BP Pulse Ox 37.2 C 61 16 119/61 100 08/07/21 20:07 08/07/21 21:17 08/07/21 10:12 08/07/21 21:17 08/07/21 19:50 Assessment Mental Status: Awake (Alert & Oriented to Patient Baseline) Airway and Respiratory Function: Patent airway with normal (patient baseline) respiratory exam Cardiovascular Function: Hemodynamically Stable Hydration Status: Adequately Hydrated Nausea & Vomiting: No Nausea or Vomiting Pain: Pain is tolerable per patient Peripheral Nerve Block: Patient did not receive a nerve block
--- NOTE | 2021-08-07 21:24 | OBVDS_ITS ---
Date of service: 08/07/21 Time of Service: 21:24 OB Labor/ Delivery Information Baby A Delivery Delivery Method: Spontaneaous Presentation: Vertex Vertex Position: Left Occipital Anterior Breech Position: N/A Cord Description-Baby A: 3 Vessels and Nuchal Cord (loose nuchal cord reduced overhead) Amniotic Fluid: Clear Estimated Blood Loss: 250 Delivery Outcome: Liveborn Infant Transferred: Remains with Mother Note: After pt became comfortable under epidural anesthesia and FHT tracing stabilized @ category 1 status, labor progressed rapidly to 8/+2. Pt began involuntarily bearing down, cervix manually reduced, 2nd stage huddle completed, anterior lip reduced to full dilation as pt pushed strongly. ACCOUNTANT MACHINE PROCESSING and Dr. Pedersen were present in delivery room for over intact perineum a vigorous male , loose nuchal cord reduced overhead and shoulders came easily in a transverse position, bulb suction done on the field and then placed in mother's arms, pitocin IV infusion begun, cord ceased pulsating and was clamped then cut by FOB, cord blood collected, fundus firm below umbilicus, vulva and perineum inspected and without laceration. Superficial vaginal laceration noted on left side, well approximated and not bleeding, not repaired. Excellent family bonding observed, apgars 7/9, weight 2840 gms. Providers Nurse Garage Door Installer: Norma Patel Packaging Specialist: Mann Gaytan Nurse: Crystal Austin Nurse: Laureen Garg Labor/Delivery Information Number of Babies in Womb: 1 Steroids Given: None Reason Steroids Not Administered: N/A Group Beta Strep: Positive Antibiotics Administered: Yes Number of Doses of Antibiotics: 3 (PCN) Rubella Status: Immune Blood Type: O+ Varicella Immunity: Immune Medication in Delivery: nitrous Maternal Complications: None Shoulder Dystocia: No Stages of Labor Onset of Labor Date: 08/07/21 Onset of Labor Time: 03:00 Complete Dilatation Date: 08/07/21 Complete Dilatation Time: 20:51 Labor - Stage 1 Duration: 0 minutes ROM Baby A: 08/07/21 ROM Baby A: 03:00 ROM Total Time- Baby A: [id number] Infant Delivery Date-Baby A: 08/07/21 Delivery Time-Baby A: 20:59 Labor Stage 2 Duration: 8 minutes Placenta Delivery Date-Baby A: 08/07/21 Placenta Delivery Time-Baby A: 21:07 Labor-Stage 3 Duration: 8 minutes Total Length of Labor-Baby A: 17 hours and 59 minutes Placenta Cultured: No Placenta Status: Delivered Baby A Gender: Male Gestational Status: Early Term (37-38.6 wks) Gestational Age in Weeks/Days: 37 Weeks and 4 Days weight: 6 lb 4.178 oz Weight Comment: 2840 gms Score-1 Minute Interval(Baby A) Heart Rate-1 minute: 100 BPM or Greater Respiratory Effort- 1 minute: Spontaneous/Strong Cry Muscle Tone-1 minute: Minimal Flexion/Extension Reflex Response-1 minute: Prompt Response Color-1 minute: Pallor or Cyanosis Total Score-1 minute: 7 Score-5 Minute Interval(Baby A) Heart Rate- 5 minute: 100 BPM or Greater Respiratory Effort-5 minute: Spontaneous/Strong Cry Muscle Tone-5 minute: Active Movement Reflex Response-5 minute: Prompt Response Color-5 minute: Bluish Hands or Feet Total Score- 5 minute: 9 Procedure Procedures: Cord Blood Collection Hemorrrhage Note Total Blood Loss for PPH Event Quantitative Blood Loss: 250
[2021-08-07] MEDS: Acetaminophen 325 MG TAB 650 MG PO (21:54)
[2021-08-07] MEDS: Ibuprofen 600 MG TAB PO (21:55)
[2021-08-07] MEDS: Dibucaine 1% 28 GM TUBE TP (21:55)
[2021-08-08 01:45] VITALS: BP 120/72; PULSE 53; RESP 18; TEMP 36.8
[2021-08-08 06:41] VITALS: BP 135/87; PULSE 57; RESP 18
[2021-08-08 07:06] LABS: HCT 36.5 % (36.0-46.0); HGB 12.3 g/dL (11.2-15.7); MCH 29.4 pg (27.0-33.0); MCHC 33.7 % (32.0-36.0); MCV 87.3 fL (80-95); MPV 11.1 fL (8.0-11.0); Platelet Count 213 10^3/uL (130-400); RBC 4.18 10^6/uL (3.93-5.22); RDW 12.9 % (11.7-14.6); WBC 18.59 10^3/uL (4.4-10.8)
[2021-08-08 07:40] VITALS: BP 132/85; PULSE 58; RESP 18; TEMP 36.8
[2021-08-08] MEDS: Ibuprofen 600 MG TAB PO ×3 (07:43→22:53)
[2021-08-08] MEDS: Acetaminophen 325 MG TAB 650 MG PO ×3 (07:44→22:53)
--- NOTE | 2021-08-08 13:39 | W.PM.OBPNV1 ---
Date of service: 08/08/21 Time of Service: 13:39 Assessment and Plan Assessment and plan (1) Term delivered: Status: Acute Assessment and plan: A: PPD#1, nml recovery off to a good start Satisfied with experience P: Planning for discharge tomorrow Routine PP Care and support Thinking of Paraguard IUD for BCM F/up at 2 & 6 wk Subjective Subjective Patient comments: No complaints, Pain well controlled, Tolerating diet and Flatus present baby status: Doing well, Nursing well, Rooming in and Strong Bonding Observed feeding status: Exclusively breast feeding Exam Physical Exam Vital signs: Temp Pulse Resp BP Pulse Ox 98.2 F 58 L 18 132/85 100 08/08/21 07:40 08/08/21 07:40 08/08/21 07:40 08/08/21 07:40 08/07/21 19:50 Vital Signs Reviewed: Yes Constitutional Constitutional: no acute distress HEENT Exam HEENT Exam: Normal Neck Exam Neck Exam: Normal Breast Exam Bilateral: Breast Exam: Normal and Soft Nipple Exam: Normal and Uninjured Respiratory Exam Respiratory Exam: Normal Cardiovascular Exam Cardiovascular Exam: Normal Abdominal Exam Abdomen: Other (soft, nontender) Fundal Exam Fundus: Below Umbilicus and Firm Rectal Exam Rectal Exam: Normal Exam Perineum: Intact Extremities Exam Extremity Exam: Normal Back/Spine/Pelvis Exam Back Exam: Normal Skin Exam Skin Exam: Normal Neurological Exam Neurological Exam: Normal Psychiatric Exam Psychiatric Exam: Normal Results Hemoglobin/Hematocrit: Hgb 12.3 g/dL (11.2-15.7) 08/08/21 06:54 Hct 36.5 % (36.0-46.0) 08/08/21 06:54
[2021-08-08 14:24] VITALS: BP 130/76; RESP 16
[2021-08-08 19:07] VITALS: BP 133/83; PULSE 61; RESP 16; TEMP 36.8
[2021-08-09] MEDS: Acetaminophen 325 MG TAB 650 MG PO ×3 (07:12→21:42)
[2021-08-09] MEDS: Ibuprofen 600 MG TAB PO ×3 (07:13→21:42)
[2021-08-09 07:21] VITALS: BP 131/93; PULSE 58; RESP 16; TEMP 37; O2SAT 100
--- NOTE | 2021-08-09 08:10 | W.PM.OBPNV1 ---
Date of service: 08/09/21 Time of Service: 08:10 Assessment and Plan Assessment and plan (1) Term delivered: Status: Acute Assessment and plan: A: PPD#2, nml recovery Continues to breastfeed well though nipples are sore Nbn circ today P: Planning discharge today if is released this afternoon Appt's for 2 & 6 wks have been made Lives w/FOB, her mother is supportive and lives 30 min. away Signs of PPD and baby blues reviewed with pt Subjective Subjective Patient comments: No complaints, Pain well controlled, Tolerating diet and Flatus present Lopez baby status: Doing well, Nursing well, Rooming in and Strong Bonding Observed Lopez feeding status: Exclusively breast feeding Exam Physical Exam Vital signs: Temp Pulse Resp BP Pulse Ox 98.6 F 58 L 16 131/93 H 100 08/09/21 07:21 08/09/21 07:21 08/09/21 07:21 08/09/21 07:21 08/09/21 07:21 Vital Signs Reviewed: Yes Constitutional Constitutional: no acute distress HEENT Exam HEENT Exam: Normal Neck Exam Neck Exam: Normal Breast Exam Bilateral: Breast Exam: Normal and Soft Nipple Exam: Normal and Uninjured Respiratory Exam Respiratory Exam: Normal Cardiovascular Exam Cardiovascular Exam: Normal Abdominal Exam Abdomen: Other Comments: soft nontender Fundal Exam Fundus: Below Umbilicus and Firm Rectal Exam Rectal Exam: Normal Exam Perineum: Intact Extremities Exam Extremity Exam: Normal Back/Spine/Pelvis Exam Back Exam: Normal Skin Exam Skin Exam: Normal Neurological Exam Neurological Exam: Normal Psychiatric Exam Psychiatric Exam: Normal Results Hemoglobin/Hematocrit: Hgb 12.3 g/dL (11.2-15.7) 08/08/21 06:54 Hct 36.5 % (36.0-46.0) 08/08/21 06:54 Abnormal Lab Findings: Abnormal Labs 08/07/21 08/08/21 11:15 06:54 WBC 17.95 H 18.59 H MPV 11.2 H 11.1 H
[2021-08-09 11:56] VITALS: BP 126/84; PULSE 68; RESP 18; TEMP 36.8; O2SAT 98
[2021-08-09 16:30] VITALS: BP 132/85; PULSE 55; RESP 16; TEMP 36.8; O2SAT 100
[2021-08-10] MEDS: Acetaminophen 325 MG TAB 650 MG PO ×2 (03:25→10:27)
[2021-08-10] MEDS: Ibuprofen 600 MG TAB PO ×2 (03:29→10:27)
[2021-08-10 07:30] VITALS: BP 128/85; PULSE 61; RESP 18; TEMP 36.7; O2SAT 99
--- NOTE | 2021-08-10 08:58 | DSE_ITS ---
Date of service: 08/10/21 Time of Service: 08:59 DS: Diagnosis Discharge Diagnosis (1) Term delivered: Status: Acute Asessment and Plan: Doing well and is feeling more confident with her breast feeding skills as well as skills. Discharge Plan Disposition Patient Disposition: HOME Condition: Good Discharge Details Reason For Visit: R/O SROM R\O LABOR AT TERM Admit Date/Time: 08/07/21 11:15 Admit Provider: Norma Patel Attending Provider: Norma Patel Primary Care Provider: Venecia Bobo Hospital Course Hospital Course: Normal labor and vaginal delivery of live male . Normal course while in hospital. Planning IUD at 6 weeks PP. Home Meds and New Rx's Prescriptions: Continued loratadine [Claritin] 10 mg tablet 10 mg PO DAILY PRNRF: 0 prenat.vits,gus,[id number] Tablet 1 tab PO DAILY RF: 0 pantoprazole [Protonix] 40 mg tablet,delayed release (DR/EC) 40 mg PO DAILY Qty: 60 RF: 0 ferrous sulfate 325 mg (65 mg iron) tablet,delayed release (DR/EC) 325 mg PO DAILY Qty: 60 RF: 2 albuterol sulfate 90 mcg/actuation Aerosol Powdr Breath Activated 2 puff INHALATION Q4H PRNRF: 0 Discontinued ondansetron HCl 4 mg tablet 4 mg PO Q8H PRN (Reason: nausea and vomiting) Qty: 30 RF: 4 doxylamine-pyridoxine (vit B6) [Diclegis] 10-10 mg tablet,delayed release (DR/EC) 1 tab PO BID Qty: 30 RF: 3 Discharge Instructions Stand Alone Forms: BC Instructions, BC Post Vaginal Deliver Activity:: Activity as Tolerated Equipment/Supplies:: No Equipment Needed Diet:: As Tolerated Discharge Orders Discharge Orders: Discharge Order (Routine); Ordered 08/10/21 Ordered By: Carla Dubon OB:DS Summary Summary Vaginal Delivery Method: Spontaneaous Episiotomy Description: None Laceration Description: None Laceration Extension: N/A Contraception Discussed Contraception Discussed: Yes (plans Paragard at 6 week PP visit), Fertile Gender-Baby A: Male weight: 6 lb 4.178 oz Status at Discharge Functional status at discharge: independent ambulation Overall status at discharge: patient is back to baseline Mental Status: mental status grossly normal Speech and Movement: speech and movement normal Mood: congruent mood Affect: normal affect Exam Physical Exam Vital signs: Temp Pulse Resp BP Pulse Ox 98.1 F 61 18 128/85 99 08/10/21 07:30 08/10/21 07:30 08/10/21 07:30 08/10/21 07:30 08/10/21 07:30 Vital Signs Reviewed: Yes Constitutional Constitutional: no acute distress and average body habitus HEENT Exam HEENT Exam: Normal Neck Exam Neck Exam: Not Done Breast Exam normal exam: Breast Exam: Normal Nipple Exam: Normal Respiratory Exam Respiratory Exam: Normal Cardiovascular Exam Cardiovascular Exam: Normal Fundal Exam Fundus: Below Umbilicus and Firm Rectal Exam Rectal Exam: Not Done Exam Patient deferred: perineal exam Perineum: Intact and Normal Extremities Exam Extremity Exam: Normal Back/Spine/Pelvis Exam Back Exam: Not Done Skin Exam Skin Exam: Normal Neurological Exam Neurological Exam: Normal Psychiatric Exam Psychiatric Exam: Normal [facility] Medical History 37 weeks gestation of Anxiety 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, +RV culture, currently Migraine Nausea and vomiting of , antepartum Positive test Positive urine drug screen at initial OB visit PROM with onset of labor within 24 hours of rupture Sprain of hand, left Surgical History History of tonsillectomy age 11 Family History Father Well adult Mother Well adult Exotropia of both eyes Maternal Grandfather FH: hemophilia Brother Autism Paternal Grandfather Diabetes Maternal Grandmother Heart disease Prostate cancer Thyroid disease Social History Smoking/Tobacco Use Status: Never Smoking risk assessment performed?: Yes Alcohol Intake: never Drug use: Daily Substance use type: marijuana Do you feel safe at home: Yes Do you feel safe in your relationship?: Yes Female Reproductive History Menstrual Age of Menarche: 12 control method: condoms History History 1 Para 0 Hx # Term Pregnancies 0 Multiple births 0 Hx # Pregnancies 0 Ectopic pregnancies 0 AB induced 0 Hx Number of Living Children 0 AB spontaneous 0 DS: Data Vitals/I&O Vitals and I&O: Vital Signs Temperature 98.1 F 08/10/21 07:30 Pulse 61 08/10/21 07:30 Pulse Rhythm Regular 08/10/21 07:30 Respiratory Rate 18 08/10/21 07:30 Respiratory Depth Normal 08/08/21 07:36 Blood Pressure 128/85 08/10/21 07:30 Blood Pressure Mean 99 08/10/21 07:30 Pulse Oximetry 99 08/10/21 07:30 Oxygen Delivery Method Room Air 08/07/21 10:16 Oxygen Flow Rate 0 08/07/21 10:16 Intake & Output 08/09/21 08/09/21 08/10/21 11:59 23:59 11:59 Other: Urine Color Yellow
[2021-08-10] MEDS: Hamamelis Leaf/Glycerin 100 EACH BOX PR (10:24)
== END 2021-08-10 12:26 | disposition home or self-care (01) | DRG 806 ==
PROVIDERS: Admitting Provider Advanced Practice Midwife; PCP Registered Nurse; Visit Provider Advanced Practice Midwife
DX: O42.02 Full-term premature rupture of membranes, onset of labor within 24 hours of rupture (principal); O99.354 Diseases of the nervous system complicating childbirth; Z37.0 Single live birth; O99.324 Drug use complicating childbirth; Z3A.37 37 weeks gestation of pregnancy; O99.824 Streptococcus B carrier state complicating childbirth; O69.81X0 Labor and delivery complicated by cord around neck, without compression, not applicable or unspecified; G43.909 Migraine, unspecified, not intractable, without status migrainosus; F41.9 Anxiety disorder, unspecified; J45.909 Unspecified asthma, uncomplicated; O99.52 Diseases of the respiratory system complicating childbirth; O99.344 Other mental disorders complicating childbirth; F12.90 Cannabis use, unspecified, uncomplicated
CPT/HCPCS: 36415; 85027; 86850; 86900; 86901; 87635; J2540; J3010; J3490

== ENCOUNTER 2022-03-29 16:33 | Outpatient (REF) | payer MEDICAID, SELFPAY ==
[2022-03-30 14:49] LABS: Chlamydia Result Negative (Negative); GC Result Negative (Negative)
== END 2022-03-29 16:34 | disposition home or self-care (01) ==
LOC: LBN 16:33
PROVIDERS: PCP Registered Nurse; Visit Provider Obstetrics & Gynecology Gynecology
DX: N89.8 Other specified noninflammatory disorders of vagina (principal)
CPT/HCPCS: 87491; 87591

== ENCOUNTER → 2025-09-06 12:15 | Outpatient (CLI) | payer SELFPAY ==
--- NOTE | 2025-09-06 11:30 | DI.RAD_ITS ---
Exam(s) XR HAND LT COMPLETE EXAM: XR HAND LT COMPLETE CLINICAL HISTORY: left finger 4th injury, bruising, r/o fracture M79.645 PAIN LT FINGERS. TECHNIQUE: 2D digital imaging was performed. COMPARISON: No exams were available for comparison FINDINGS: 3 views There is some soft tissue swelling in the region of the PIP joint of the 4th- ring finger but no evidence of fracture or dislocation nor abnormal soft tissue densities. No osseous lesions. No radiopaque foreign bodies evident. No gas in the soft tissues. IMPRESSION: No acute osseous findings in the 4th finger and hand. DATA REPOSITORY: RADIATION DOSE DELIVERED:
== END ==
LOC: DI 12:15
PROVIDERS: PCP Registered Nurse; Visit Provider Physician Assistant
DX: M79.645 Pain in left finger(s) (principal)
CPT/HCPCS: 73130